=== PATIENT | male | born 1935 | race Caucasian/White ===

== ENCOUNTER 2021-04-01 22:30 | Inpatient (IN) | payer OTHER ==
[~2021-04-01] VITALS: Ht 162.6 cm; Wt 63.5 kg
[~2021-04-01 22:30] MED LIST: CEREFOLIN TABLE1 TAB; GLIMEPIRIDE4 MG; METFORMIN HCL1000 MG; VASOTEC2.5 MG
[2021-04-04] MEDS ORDERED: FLUOCINONIDE-E15 GM (09:34)
[2021-04-04] MEDS ORDERED: JANUMET XR 50-1 EAC1 (09:34)
[2021-04-04] MEDS ORDERED: KETOCONAZOLE15 GM (09:34)
[2021-04-04] MEDS ORDERED: PENTOXIFYLLINE400 MG (09:35)
[2021-04-04] MEDS ORDERED: ABATINEX680 MG (09:35)
[2021-04-04] MEDS ORDERED: GABAPENTIN300 M2 (09:35)
[2021-04-04] MEDS ORDERED: ROSUVASTATIN CA10 MG (09:35)
[2021-04-04] MEDS ORDERED: PANTOPRAZOLE SO40 MG (09:35)
[2021-04-09] MEDS ORDERED: CARAFATE1 GM PO (17:05)
[2021-04-09] MEDS ORDERED: BACTRIM DS TAB1 EACH PO (17:05)
[2021-04-09] MEDS ORDERED: INTEGRA F CAPS1 EACH PO (17:05)
[2021-04-09] MEDS ORDERED: FOLIC ACID1 MG PO (17:05)
[2021-04-09] MEDS ORDERED: ABATINEX680 MG PO (17:05)
[2021-04-09] MEDS ORDERED: VASOTEC2.5 MG PO (17:05)
[2021-04-09] MEDS ORDERED: ROSUVASTATIN CA10 MG PO (17:05)
[2021-04-09] MEDS ORDERED: Neurin-Sl Tablet Sl SL (17:05)
[2021-04-09] MEDS ORDERED: PYRIDOXINE HCL100 MG PO (17:05)
[2021-04-09] MEDS ORDERED: PANTOPRAZOLE SO40 MG PO (17:05)
== END 2021-04-09 17:41 | disposition home or self-care (01) | DRG 811 ==
LOC: ER 22:30 → MEDI 04-02 14:37
PROVIDERS: ADMIT Internal Medicine; ATTEND Internal Medicine
PROC: 30233N1 Transfusion of Nonautologous Red Blood Cells into Peripheral Vein, Percutaneous Approach (ICD-10-PCS; principal; 2021-04-02)
PROC: 4A12X4Z Monitoring of Cardiac Electrical Activity, External Approach (ICD-10-PCS; 2021-04-02)
PROC: 0DB68ZX Excision of Stomach, Via Natural or Artificial Opening Endoscopic, Diagnostic (ICD-10-PCS; 2021-04-07)
PROC: 0DBH8ZX Excision of Cecum, Via Natural or Artificial Opening Endoscopic, Diagnostic (ICD-10-PCS; 2021-04-08)
PROC: 0DBL8ZX Excision of Transverse Colon, Via Natural or Artificial Opening Endoscopic, Diagnostic (ICD-10-PCS; 2021-04-08)
PROC: 0DBK8ZX Excision of Ascending Colon, Via Natural or Artificial Opening Endoscopic, Diagnostic (ICD-10-PCS; 2021-04-08)
DX: D64.9 Anemia, unspecified (principal); K57.31 Diverticulosis of large intestine without perforation or abscess with bleeding; K62.5 Hemorrhage of anus and rectum; S09.8XXA Other specified injuries of head, initial encounter; E11.9 Type 2 diabetes mellitus without complications; Z79.4 Long term (current) use of insulin; I10 Essential (primary) hypertension; Z20.822 Contact with and (suspected) exposure to COVID-19